=== PATIENT | female | born 1980 | race Two or more races ===

== ENCOUNTER 2020-09-14 08:03 | Day surgery (SDC) | payer OTHER ==
[2020-09-14] VITALS (9 sets, daily range): BP systolic 106–139; BP diastolic 54–65
[~2020-09-14] VITALS: Ht 160 cm; Wt 99.8 kg
--- NOTE | 2020-09-14 06:56 | Anethesia Preoperative Eval ---
Anesthesia Pre-op PMH/ROS General Date of Evaluation: Sep 14, 2020 Time of Evaluation: 06:54 Anesthesiologist: cedrick ASA Score: ASA 3 Mallampati Score Class I : Soft palate, uvula, fauces, pillars visible Class II: Soft palate, uvula, fauces visible Class III: Soft palate, base of uvula visible Class IV: Only hard plate visible Mallampati Classification: Class II Surgeon: adri Diagnosis: gerd, abdominal pain Surgical Procedure: egd/colonoscopy Anesthesia History: none Social History: smoking - nonsmoker Family History: no anesthesia problems Allergies: Coded Allergies: No Known Allergies (Unverified , 09/14/20) Medications: see eMAR Patient NPO?: Yes Past Medical History Gastrointestinal/Genitourinary: Reports: GERD, other - kidney stones, constipation, abnormal uterine bleeding Neurologic/Psychiatric: Reports: depression/anxiety Endocrine: Reports: DM Musculoskeletal/Integumentary: Reports: other - back pain, joint pain Anesthesia Pre-op Phys. Exam Physician Exam Last Vital Signs Date Time Temp Pulse Resp B/P (MAP) Pulse Ox O2 Delivery O2 Flow Rate FiO2 09/14/20 08:39 Room Air 09/14/20 08:36 97.9 66 18 114/60 97 Constitutional: NAD Neurologic: CN 2-12 intact Cardiovascular: RRR Respiratory: CTA Gastrointestinal: S/NT/ND Airway Exam Mallampati Score: Class II MO: limited Neck: short TMD: 2fb ROM: limited Anesthesia Pre-op A/P Labs Labs Test 09/14/20 08:15 Urine HCG, Qualitative Negative (NEGATIVE) Microbiology Date/Time Source Procedure Growth Status 09/10/20 08:55 Nasopharynx SARS-CoV-2 RdRp Gene Assay - Final Complete Risk Assessment & Plan Assessment: asa3 Plan: mac Status Change Before Surgery: No Pre-Antibiotics Drug: Jasmyne Edwards MD Sep 14, 2020 06:56
--- NOTE | 2020-09-14 08:57 | Short Stay Surgery H&P ---
History of Present Illness History of Present Illness Chief Complaint Abdominal pains, rectal bleeding, Gerds, constipation/history of hemorrhoids. MARLEN Davis is a 39 year old female who was admitted on for Abdominal Pain, Gerd/rectal bleeding and abdominal pains with constipation. Patient History PAST MEDICAL HISTORY: (1) History of Helicobacter infection Review of Systems Cardiovascular: Reports: no symptoms Respiratory: Reports: no symptoms Skeletal: Reports: trauma Gastrointestinal: Reports: gastro esophageal reflux disease Genitourinary: Reports: no symptoms Neurologic: Reports: no symptoms Endocrine: Reports: no symptoms Hematologic: Reports: no symptoms Physical Exam Vital Signs Last Vital Signs Date Time Temp Pulse Resp B/P (MAP) Pulse Ox O2 Delivery O2 Flow Rate FiO2 09/14/20 08:39 Room Air 09/14/20 08:36 97.9 66 18 114/60 97 Skin: normal HENT: normal Heart: normal Lungs: normal Abdomen: abnormal Extremities: normal Genitourinary: normal Plan Plan of Care Upper and lower GI. endoscopy with biopsy. Preop Interventions None. Summary of Findings See the reports. Attestation Are the patient's medical conditions optimized for surgery? Attestation Response: yes Stefani Ordaz MD Sep 14, 2020 08:57
--- NOTE | 2020-09-14 08:59 | Pre-Procedure Note/Attestation ---
Pre-Procedure Note/Attestation Complete Prior to Procedure Planned Procedure: left Procedure Narrative: Examination of the upper and lower GI. Via endoscopy with obtaining biopsies. Indications for Procedure Pre-Operative Diagnosis: R/O Hemorrhoids/rectal polyps/colitis/gastritis and peptic ulcer. Attestation I attest that I discussed the nature of the procedure; its benefits; risks and c omplications; and alternatives (and the risks and benefits of such alternatives), prior to the procedure, with the patient (or the patient's legal surgical sales representative). I attest that, if there was a reasonable possibility of needing a blood transfusion, the patient (or the patient's legal surgical sales representative) was given the [place] [facility] standardized written summary, pursuant to the Asaf Becky Blood Safety Act ([place] Health and Safety Code # 1645, as amended). I attest that I re-evaluated the patient just prior to the surgery and that there has been no change in the patient's H&P, except as documented below: Stefani Ordaz MD Sep 14, 2020 08:59
[2020-09-14] MEDS ORDERED: LR 1000ml ONE (09:00)
[2020-09-14] MEDS ORDERED: Lidocaine 1% MPF 10mg/ml 5ml ONE (09:00)
--- NOTE | 2020-09-14 09:00 | Discharge Instructions ---
Discharge Instructions Discharge Instructions Follow up with: Call to make appointment to follow up with doctor office For Congestive Heart Failure Reminder Report to your physician any weight gain of 5 pounds or more in one week. Stefani Ordaz MD Sep 14, 2020 09:00
[2020-09-14] MEDS ORDERED: Midazolam 2mg/2ml Inj IVP PRN (09:30)
[2020-09-14] MEDS ORDERED: LR 1000ml 1,000 ML IVLG SCH (09:30)
[2020-09-14] MEDS ORDERED: fentaNYL 100 mcg/2 mL IV PRN (09:30)
[2020-09-14] MEDS ORDERED: Atropine Inj 1mg/10ml Syr IVP PRN (09:30)
[2020-09-14] MEDS ORDERED: DiphenhydrAMINE 50mg/ml Inj IVP PRN (09:30)
--- NOTE | 2020-09-14 09:31 | Endoscopy Procedure Note ---
Endoscopy Procedure Note General Indication for Procedure: Abdominal pains/rectal bleeding/Gerds and constipation Procedures Performed: EGD - Completely normal upper GI. endoscopy; random b iopsy obtained from gastric body., colonoscopy - Mild internal hemorrhoids/non friable ;otherwise completely normal total colonoscopy. Specimen: yes Pt Tolerated Procedure Well: Yes Estimated Blood Loss: none Anesthesia Anesthesiologist: Dr. Guajardo Anesthesia: moderate sedation Medications Medication Given: see anesthesia record Inserted Devices Implant(s) used?: No Quality Quality of Bowel Preparation: Excellent Did scope reach the cecum?: Yes Was there any complications?: No GI Core Measures 50 yrs or older w/o bx or poly: No 10yrs. F/U recommended: Yes Med reason:<3 yrs.: System Reason:<3 yrs.: Stefani Ordaz MD Sep 14, 2020 09:31
--- NOTE | 2020-09-14 09:51 | Immediate Post-Op Evaluation ---
Immediate Post-Op Evalulation Immediate Post-Op Evalulation Procedure: egd/colonoscopy w/bx Date of Evaluation: Sep 14, 2020 Time of Evaluation: 09:48 IV Fluids: 350ml lr Blood Products: none Estimated Blood Loss: negligible Blood Pressure Systolic: 113 Blood Pressure Diastolic: 60 Pulse Rate: 67 Respiratory Rate: 18 O2 Sat by Pulse Oximetry: 100 Temperature (Fahrenheit): 97.2 Pain Score (1-10): 0 Nausea: No Vomiting: No Complications none Patient Status: awake, reacts, patent Hydration Status: adequate Drug: Jasmyne Edwards MD Sep 14, 2020 09:51
--- NOTE | 2020-09-14 09:53 | 48 Hour Post Anesthesia Eval ---
Post Anesthesia Evaluation Procedure: egd/colonoscopy w/bx Date of Evaluation: Sep 14, 2020 Time of Evaluation: 09:51 Blood Pressure Systolic: 127 0: 67 Pulse Rate: 70 Respiratory Rate: 18 Temperature (Fahrenheit): 97.2 O2 Sat by Pulse Oximetry: 100 Airway: patent Nausea: No Vomiting: No Pain Intensity: 0 Hydration Status: adequate Cardiopulmonary Status: stable Mental Status/LOC: patient returned to baseline Post-Anesthesia Complications: none Follow-up care needed: N/A Jasmyne Villanueva MD Sep 14, 2020 09:53
--- NOTE | 2020-09-14 10:15 | Operative Note - Dictated ---
DATE OF OPERATION: 09/14/2020 SURGEON: Stefani Ordaz MD. PROCEDURE: Total colonoscopy. PREOPERATIVE DIAGNOSES: Abdominal pain, history of constipation, and rectal bleeding. POSTOPERATIVE DIAGNOSIS: Minimal internal hemorrhoids which is nonfriable. Otherwise, complete total colonoscopy up to the cecum as examined. MEDICATION USED: Per Dr. Rossi, anesthesiologist. INSTRUMENT: GIF Olympus video colonoscope. DESCRIPTION OF PROCEDURE: The patient after arriving in the endoscopy unit, was told about risks and benefits of the procedure, which she accepted and signed informed consent. She was then put on the left lateral decubitus position. After adequate IV sedation, the scope was gently passed through the anal area and retroflexion maneuver which was applied here revealed evidence of minimal internal hemorrhoids without any friability or bleeding. The rest of the rectum looked completely normal without any pathology. At this time, the scope was passed through the rectosigmoid area and gradually to redundant left colon reaching to the splenic flexure. All these areas remained to be completely normal as the scope was further advanced into the transverse colon and finally reached to hepatic flexure, and guided into the right colon all the way to the base of the cecum. All these areas again revealed completely within normal limits without any intraluminal pathology. There was no polyps, tumors, strictures, bleeding site, colitis, etc. Upon reaching to the base of the cecum, within 6 minutes the scope was gradually pulled out and no other pathology was found, as the colon cleanup was excellent. The patient tolerated the procedure well and left the endoscopy room in a good condition. Stefani Ordaz M.D. DR: JOE JOB#: [id number] CC:
--- NOTE | 2020-09-14 10:30 | Pre-op HX & Phy Repo 2 SIG ---
DATE OF ADMISSION: 09/14/2020 HISTORY OF PRESENT ILLNESS: The patient is a 39-year-old female who is being seen prior to undergoing the procedures of upper and lower GI endoscopy for which she has been scheduled to receive for evaluation of her gastrointestinal complaints that she has had subsequent to her work injury. Patient basically was seen in my office approximately a couple of months ago and at this time she was scheduled, we decided that she had to undergo an upper and lower GI endoscopic examination for further evaluation of her symptoms. Basically have been complained of upper abdominal pain as well as having constipation and rectal bleeding. 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 Her condition has been that she has been suffering from constipation along with having periods of some minimal amount of bleeding per rectum. She basically denies having lost any weight and she has always been excessively obese as she is still is the same way in terms of her weight. As I mentioned, she does have symptoms of heartburn, but she denies having any difficulty swallowing such as dysphagia, odynophagia, etc. 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 She had injuries over different parts of the body including her left knee as it required for her to receive multiple medications including nonsteroidal anti-inflammatory agents as well. Subsequently, she noticed that she started to have these symptoms gradually increasing. She also reported to me that in the past, she had been treated with medications such as omeprazole and as she was recently seen by another physician, Dr. Cheek who is a database design analyst, he suggested to the patient to receive an upper GI endoscopy or examination for Helicobacter pylori infection situation as she reports that in the past she was told also she had history of peptic ulcer disease, but this is quite vague in terms of description. Currently, she denies having any nausea or vomiting or vomiting blood or passing black stools. PAST MEDICAL HISTORY: Basically nonsignificant as she has not had any history of hypertension, high cholesterol, arthritis, etc. As I mentioned, only she reported that she might have had history of peptic ulcer disease/gastritis in the past. PAST SURGICAL HISTORY: Nonsignificant. ALLERGIES: Nonsignificant. HABITS: She denies drinking alcohol or smoking cigarettes. MEDICATIONS: Currently, she is not taking any particular medication. REVIEW OF SYSTEMS: Basically history of present illness, otherwise completely nonsignificant. PHYSICAL EXAMINATION: GENERAL: Reveals alert, well-oriented very pleasant female, who does not seem to be in any acute distress. She is excessively obese, answers the questions quite properly. VITAL SIGNS: Blood pressure 114/60, temperature 97.9, respiratory rate 18, pulse rate 66 per minute, oxygen saturation is 97% in room air. HEENT: Normocephalic. Pupils equal in size and reactive to light and accommodation. No visible jaundice. Buccal cavity, tongue midline, well hydrated. No ulcers. NECK: Supple. No JVD, thyromegaly, or adenopathy. CHEST: Clear to auscultation and percussion. No rales or rhonchi. HEART: S1, S2 normal. Regular rhythm. No gallops or murmur. ABDOMEN: Quite obese. Areas of mild tenderness over the upper part of the abdomen. There is no hepatosplenomegaly. Bowel sounds are present. No palpable mass. No rebound phenomenon. EXTREMITIES: Within normal limits. No pretibial edema, cyanosis, or clubbing. CENTRAL NERVOUS SYSTEM: Grossly normal. SKIN: Normal. LYMPHATICS: Normal. INITIAL PREOPERATIVE DIAGNOSES: 1. Epigastric pain consistent with chronic gastroesophageal acid reflux aggravated by side effects of NSAID medication with a history of peptic ulcer disease, rule out NSAID-induced peptic ulcer disease, rule out underlying Helicobacter pylori infection. 2. History of generalized abdominal pain, possibly mostly related to underlying irritable bowel syndrome aggravated by anxiety and stress and nonsteroidal anti-inflammatory agents. 3. Possible history of Helicobacter pylori infection and peptic ulcer disease. 4. History of bodily injury, morbid obesity. RECOMMENDATION: At this time, I do feel that the applicant is quite stable to undergo the procedure of upper and lower GI endoscopic examinations. She understands the risks and benefits and will sign the consent. Said Estelita Ordaz DR: TAMARA JOB#: [id number] CC:
--- NOTE | 2020-09-14 10:30 | Operative Note - Dictated ---
DATE OF OPERATION: 09/14/2020 SURGEON: Stefani Ordaz MD PROCEDURE: Esophagogastroduodenoscopy with biopsy. PREOPERATIVE DIAGNOSES: 1. Abdominal pain. 2. History of chronic gastroesophageal reflux. 3. Possible history of Helicobacter pylori gastritis ?status. POSTOPERATIVE DIAGNOSIS: Completely normal upper GI endoscopy. Biopsy was taken per random from gastric body. MEDICATION USED: Per Dr. Rossi, anesthesiologist. INSTRUMENT: GIF Olympus upper GI video endoscope. DESCRIPTION OF PROCEDURE: Patient after arriving in the endoscopy unit, was told about risks and benefits of the procedure, which she accepted and signed informed consent. She was then put on the left lateral decubitus position. After adequate IV sedation, the scope was gently passed through the cricopharyngeal area, was lodged in the upper esophagus and gradually advanced towards gastroesophageal junction. The entire length of esophagus was completely normal. Also, the GE junction looked normal without any evidence of Rodriguez's or hiatal hernia. At this time, the scope was advanced into the stomach and gradually the areas of the fundus and the body and antrum were examined, which basically revealed normal mucosal coverage without any evidence of ulcers, tumors, polyps, bleeding sites etc. At this point, 1 random biopsy from gastric body obtained and subsequently scope was passed through the pylorus. First and second portion of duodenum were found to be completely normal. At this time, the scope was pulled out and the procedure was terminated. The patient tolerated the procedure well. Stefani Ordaz M.D. DR: TAMARA JOB#: [id number] CC:
== END 2020-09-14 11:30 | disposition home or self-care (01) ==
LOC: GAS 08:03
DX: R10.9 Unspecified abdominal pain (principal); K21.9 Gastro-esophageal reflux disease without esophagitis; E66.01 Morbid (severe) obesity due to excess calories; Z68.39 Body mass index [BMI] 39.0-39.9, adult; E11.9 Type 2 diabetes mellitus without complications; F32.9 Major depressive disorder, single episode, unspecified; F41.9 Anxiety disorder, unspecified; K64.8 Other hemorrhoids
CPT/HCPCS: 43239; 45378; 81025; 94003; J2704; J7120; U0002; 94150